=== PATIENT | female | born 1945 | race Caucasian/White ===

== ENCOUNTER 2018-11-25 18:19 | Emergency (ER) | payer BC ==
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
[2018-11-25 19:15] LABS: ABSOLUTE NEUTROPHIL COUNT 3.28; BASO % 0.7 % (0-6); EOS % 4.7 % (0-6); GRAN % 56.5 % (47-80); HEMATOCRIT 35.8 % (35.0-47.0); HEMOGLOBIN 11.8 gm/dl (11.6-16.0); LYMPH % 26.4 % (16-45); MEAN CELL VOLUME 85.9 fl (81-97); MEAN CORPUSCULAR HEMOGLOBIN 28.3 pg (27-33); MEAN PLATELET VOLUME 9.8 fl (7.4-10.4); MONO % 11.7 % (0-9); PLATELET COUNT 257 K/uL (130-400); RED BLOOD COUNT 4.17 M/uL (3.80-5.40); RED CELL DISTRIBUTION WIDTH 12.7 % (11.5-14.5); WHITE BLOOD COUNT W/O DIFF 5.8 K/uL (4.2-12.2)
[2018-11-25 19:24] LABS: BILIRUBIN,TOTAL < 0.20 mg/dL (0.2-1.0); BLOOD UREA NITROGEN 14 mg/dL (8-23); CREATININE 0.9 mg/dL (0.5-0.9); EST GLOMERULAR FILTRATION RATE > 60 mL/min
[2018-11-25 19:25] LABS: TOTAL PROTEIN 7.1 g/dL (6.6-8.7)
[2018-11-25 19:27] LABS: GLUCOSE,RANDOM 194 mg/dL (74-109)
[2018-11-25 19:29] LABS: ALT/SGPT 23 U/L (<33); AST/SGOT 32 U/L (10.0-35.0)
[2018-11-25 19:30] LABS: ALB/GLOB RATIO 1.5 (1.1-1.8); ALBUMIN 4.3 g/dL (4.0-5.0); ALKALINE PHOSPHATASE 54 U/L (35-104)
[2018-11-25] MEDS ORDERED: METFORMIN 500 MG TABLET PO ONE (21:56)
[2018-11-25] MEDS ORDERED: LORAZEPAM 0.5 MG TABLET PO ONE (21:56)
[2018-11-25] MEDS ORDERED: FENTANYL PF 100MCG/2ML VIAL IVP ONE (21:56)
[2018-11-25] MEDS ORDERED: 0.9 % SODIUM CHLORIDE 1000ML 500 ML IV SCH (22:00)
--- NOTE | 2018-11-27 15:55 | RADIOLOGY REPORT ---
EXAMINATION: Left ankle on 11/25/2018 at 7:59 p.m. CLINICAL HISTORY: The patient tripped over her dog with injury. TECHNIQUE: Three views of left ankle. COMPARISON: No prior left ankle series. ENCOUNTER: Initial. FINDINGS: Diffuse osteopenia is seen consistent with osteoporosis. There is fairly extensive vascular calcification present. No definite acute fracture or dislocation of the left ankle identified. There are prominent calcaneal spurs both posteriorly and along the plantar surface and also prominent calcification in the region of the distal aspect of the Achilles tendon. IMPRESSION: 1. Soft tissue swelling about the ankle, particularly laterally. 2. Numerous chronic-appearing findings about the ankle but no definite acute fracture of the left ankle identified. MTDD
--- NOTE | 2018-11-27 15:55 | RADIOLOGY REPORT ---
EXAMINATION: Right knee on 11/25/2018 at 8:02 p.m. CLINICAL HISTORY: The patient tripped over her dog with right knee injury. TECHNIQUE: Five views of right knee. COMPARISON: Right knee series 12/13/2011. ENCOUNTER: Initial. FINDINGS: The patient is again seen to be postop right TKA with a long-stem tibial component as before. The components appear in good position. However, on the oblique view in particular, there is an appearance very suspicious for a fracture of the distal metaphysis of the femur just above the femoral component of the TKA. This appearance was not seen on the oblique view from the prior right knee series of 12/13/2011. No obvious joint effusion seen today although the lateral view is somewhat rotated. Vascular calcification evident. IMPRESSION: 1. Postop right TKA. 2. Probably essentially undisplaced fracture of the distal femur just above the femoral component of the right TKA as noted above. MTDD
--- NOTE | 2018-11-27 21:46 | CT SCAN REPORT ---
EXAM: CT SCAN HEAD WO CONTRAST HISTORY: PATIENT FELL WITH INJURY. TECHNIQUE: Axial CT scan of the head performed without IV contrast. Preliminary report provided by [facility]. COMPARISON: None. ENCOUNTER: Initial. FINDINGS: No definite acute intracranial hemorrhage identified. No focal mass effect or midline shift evident. Mild generalized atrophy is present. No definite acute infarct or intracranial mass lesion seen. There is moderate opacification in the left maxillary sinus and complete opacification of the right sphenoid sinus. Some soft tissue air in the scalp of the left frontal region superiorly consistent with a scalp laceration in this region. There is a small nonspecific calcification along the right optic nerve just posterior to the globe within the right orbit. IMPRESSION: 1. NO DEFINITE ACUTE INTRACRANIAL HEMORRHAGE OR FOCAL MASS EFFECT EVIDENT. 2. PROMINENT MEMBRANE THICKENING IN THE LEFT MAXILLARY SINUS AND VIRTUAL COMPLETE OPACIFICATION OF THE RIGHT SPHENOID SINUS. 3. PROBABLE SCALP LACERATION HIGH IN THE LEFT FRONTAL REGION. 4. SINGLE SMALL NONSPECIFIC CALCIFICATION ALONG THE ANTERIOR ASPECT OF THE RIGHT OPTIC NERVE JUST POSTERIOR TO THE GLOBE WITHIN THE RIGHT ORBIT. JOB NUMBER: [id number] [facility]
--- NOTE | 2018-11-27 21:53 | CT SCAN REPORT ---
EXAM: CT SCAN CERVICAL SPINE WO CONTRAST HISTORY: PATIENT FELL, INJURY. TECHNIQUE: Axial CT scan of the entire cervical spine performed without IV contrast. Preliminary report provided by [facility]. COMPARISON: No prior cervical study with which to compare. ENCOUNTER: Initial. FINDINGS: There is complete opacification of the visualized right sphenoid sinus as noted on the head CT today as well, and moderate membrane thickening also again partially seen in the left maxillary sinus. No apical pneumothorax is evident. No definite fracture or prevertebral soft tissue swelling seen in the cervical spine. There is loss of the normal cervical lordosis, likely due to positioning or spasm. Prominent degenerative change at the odontoid-anterior arch of C1 articulation. Narrowing of the fourth through the seventh cervical interspaces with associated hypertrophic spurring. Multilevel facet joint arthropathy is evident. Very slight anterior subluxation of C3 on C4, which appears to be on a degenerative basis related to this facet joint arthropathy. There is prominent spurring, particularly at the C4-5 level posteriorly as well with resulting central stenosis, particularly at this level, which may be impinging on the anterior aspect of the cervical cord. This could be further assessed with an MRI of the cervical spine, if clinically desired. There is some mild ligamentous calcification posteriorly in the neck as well, particularly adjacent to the spinous processes of C6 and T1. IMPRESSION: 1. NO DEFINITE FRACTURE OR PREVERTEBRAL SOFT TISSUE SWELLING SEEN IN THE CERVICAL SPINE. 2. LOSS OF LORDOSIS IS LIKELY DUE TO POSITIONING OR SPASM. 3. MULTILEVEL DEGENERATIVE CHANGE IN THE CERVICAL SPINE, DETAILED ABOVE. THERE IS SOME ASSOCIATED CENTRAL STENOSIS AT THE C4-5 LEVEL IN PARTICULAR. JOB NUMBER: [id number] MTDD
== END 2018-11-25 23:12 | disposition short-term general hospital (02) ==
LOC: ER 18:19
DX: S72.434A Nondisplaced fracture of medial condyle of right femur, initial encounter for closed fracture (principal); S01.81XA Laceration without foreign body of other part of head, initial encounter; M54.2 Cervicalgia; M25.572 Pain in left ankle and joints of left foot; E11.9 Type 2 diabetes mellitus without complications; W01.10XA Fall on same level from slipping, tripping and stumbling with subsequent striking against unspecified object, initial encounter; Y92.009 Unspecified place in unspecified non-institutional (private) residence as the place of occurrence of the external cause; Z96.651 Presence of right artificial knee joint
CPT/HCPCS: 36416; 70450; 72125; 80053; 82948; 85025; 96374; 99285; J7030

== ENCOUNTER 2018-12-06 12:22 | Emergency (ER) | payer BC ==
--- NOTE | 2018-12-06 13:03 | Emergency Department Record ---
History of Present Illness - General Chief Complaint: Suture removal Stated Complaint: SUTURE REMOVAL Time Seen by Provider: 12/06/18 13:02 Source: Patient, Family Mode of arrival: Ambulatory Limitations: No limitations - History of Present Illness Initial Comments: 73 yo female presents for wound check and suture removal. No complaints since her last visit. No headaches. She has follow up for her other injuries scheduled. MD Complaint: Suture/staple removal, Wound re-check -: Week(s) Initial Visit For: Laceration Returns Today for: Staple/stitch removal, Wound recheck Symptoms Since Prior Visit: Improved Associated Symptoms: None - Related Data Allergies Allergy/AdvReac Type Severity Reaction Status Date / Time latex Allergy HIVES Verified 12/06/18 13:03 Sulfa (Sulfonamide Allergy HIVES Verified 12/06/18 13:03 Antibiotics) sulfamethoxazole Allergy HIVES Verified 12/06/18 13:03 [From Bactrim] trimethoprim [From Bactrim] Allergy HIVES Verified 12/06/18 13:03 Review of Systems Constitutional: Denies: Chills, Fever, Malaise, Weakness Eyes: Denies: Eye discharge, Eye pain, Photophobia, Vision change ENT: Denies: Congestion Respiratory: Denies: Cough Cardiovascular: Denies: Chest pain Endocrine: Denies: Fatigue Gastrointestinal: Denies: Diarrhea, Nausea, Vomiting Musculoskeletal: Reports: As per HPI, Arthralgia Skin: Reports: Bruising Neurological: Denies: Headache, Vertigo Hematological/Lymphatic: Denies: Easy bleeding, Easy bruising Past Medical History - SOCIAL HISTORY Smoking Status: Never smoker Alcohol Use: None Drug Use: None - RESPIRATORY Hx Respiratory Disorders: No - CARDIOVASCULAR Hx Cardio Disorders: No - NEURO Hx Neuro Disorders: No - GI Hx GI Disorders: No - Hx Genitourinary Disorders: No - ENDOCRINE Hx Endocrine Disorders: Yes Hx Diabetes: Yes (type) Hx Thyroid Disease: No - MUSCULOSKELETAL Hx Musculoskeletal Disorders: No - PSYCH Hx Psych Problems: No - HEMATOLOGY/ONCOLOGY Hx Hematology/Oncology Disorders: No Family Medical History Any Significant Family History?: No Physical Exam - General General Appearance: Alert, Oriented x3, Cooperative, No acute distress Limitations: No limitations - Head Head exam: Other (Healing eliptical scalp laceration, some scabs, no infection) - Eye Eye exam: Normal appearance, PERRL - ENT ENT exam: Normal exam Ear exam: Normal external inspection Nasal Exam: Normal inspection - Neck Neck exam: Normal inspection. negative: Tenderness - Neurological Neurological exam: Alert, Oriented X3. negative: Altered - Psychiatric Psychiatric exam: Normal affect, Normal mood. negative: Agitated, Anxious - Skin Skin exam: Intact Course - Reevaluation(s) Reevaluation #1: The wound is healing as expected No signs of infection Sutures removed without difficulty 12/06/18 18:56 Disposition Disposition: Discharge Clinical Impression: Visit for suture removal Disposition: Home, Self-Care Condition: (1) Good Instructions: Stitches Removal (ED) Additional Instructions: Return if you have any concerns with the healing of the laceration. Forms: Patient Portal Access Time of Disposition: 13:03 Quality - Quality Measures Quality Measures: N/A - Blood Pressure Screening Does Patient Have Any of the Following: No Blood Pressure Classification: Pre-Hypertensive BP Reading Systolic Measurement: 127 Diastolic Measurement: 79 Screening for High Blood Pressure: < Pre-Hypertensive BP, F/U Documented > [ G8950] Pre-Hypertensive Follow-up Interventions: Referral to alternative/primary care provider.
== END 2018-12-06 13:12 | disposition home or self-care (01) ==
LOC: ER 12:22
DX: Z48.02 Encounter for removal of sutures (principal)

== ENCOUNTER 2019-03-26 14:56 | Emergency (ER) | payer BC ==
--- NOTE | 2019-03-26 15:12 | Emergency Department Record ---
History of Present Illness - General Stated Complaint: FALL INJURY/HEAD Time Seen by Provider: 03/26/19 15:11 Source: Patient Mode of Arrival: Ambulatory Limitations: No limitations - History of Present Illness Initial Comments: 73 yo female presents after a slip and fall in the bathroom on a wet floor. She was giving her dog a bath. She thinks she hit her head on the toilet. She has posterior scalp tenderness and swelling. No neck pain. No other extremity pain, chest pain, syncope, chest or abdominal pain. No confusion. She is tender in the scalp but no significant headache. No blood thinners. MD Complaint: Fall -: Hour(s) (1) Fall From: Chair When Fall Occurred: 1 hour [employer] Fall Witnessed: Yes, by family Place Fall Occurred: Home Loss of Consciousness: None Prolonged Down Time?: No Symptoms Prior to Fall: None Location: Head Quality: Aching (mild) Associated Symptoms: Denies - [place] Coma Scale Eye Response: (4) Open spontaneously Motor Response: (6) Obeys commands Verbal Response: (5) Oriented [place] Total: 15 - Related Data Home Medications Medication Instructions Recorded Confirmed Last Taken Insulin Detemir [Levemir] 32 unit SQ QPM 03/26/19 03/26/19 03/25/19 Allergies Allergy/AdvReac Type Severity Reaction Status Date / Time latex Allergy HIVES Verified 03/26/19 15:07 Sulfa (Sulfonamide Allergy HIVES Verified 03/26/19 15:07 Antibiotics) sulfamethoxazole Allergy HIVES Verified 03/26/19 15:07 [From Bactrim] trimethoprim [From Bactrim] Allergy HIVES Verified 03/26/19 15:07 Review of Systems Constitutional: Denies: Chills, Fever, Malaise, Weakness Eyes: Denies: Eye discharge ENT: Denies: Congestion, Throat pain Respiratory: Denies: Cough, Dyspnea, Hemoptysis, Wheezes Cardiovascular: Denies: Chest pain, Palpitations, Syncope Endocrine: Denies: Fatigue, Polydipsia, Polyuria Gastrointestinal: Denies: Abdominal pain, Diarrhea, Nausea, Vomiting Genitourinary: Denies: Dysuria, Urgency Musculoskeletal: Denies: Arthralgia, Back pain, Myalgia Skin: Denies: Bruising, Change in color, Rash Neurological: Denies: Abnormal gait, Confusion, Headache, Numbness, Paresthesias, Seizure, Tingling, Tremors, Vertigo, Weakness Psychiatric: Denies: Anxiety Hematological/Lymphatic: Denies: Easy bleeding, Easy bruising Past Medical History - SOCIAL HISTORY Smoking Status: Never smoker Drug Use: None - RESPIRATORY Hx Respiratory Disorders: No - CARDIOVASCULAR Hx Cardio Disorders: No - NEURO Hx Neuro Disorders: No - GI Hx GI Disorders: No - Hx Genitourinary Disorders: No - ENDOCRINE Hx Endocrine Disorders: Yes Hx Diabetes: Yes (type) Hx Thyroid Disease: No - MUSCULOSKELETAL Hx Musculoskeletal Disorders: No - PSYCH Hx Psych Problems: No - HEMATOLOGY/ONCOLOGY Hx Hematology/Oncology Disorders: No Physical Exam - General General Appearance: Alert, Oriented x3, Cooperative, No acute distress Limitations: No limitations - Head Head exam: negative: Atraumatic, Normal inspection Head exam detail: Hematoma Image of Face/Head: 1 - swelling and tenderness, intact skin - Eye Eye exam: Normal appearance, PERRL. negative: Conjunctival injection, Scleral icterus - ENT ENT exam: Normal exam, Mucous membranes moist Ear exam: Normal external inspection Nasal Exam: Normal inspection Mouth exam: Normal external inspection - Neck Neck exam: Normal inspection - Respiratory Respiratory exam: Normal lung sounds bilaterally. negative: Chest wall tenderness, Decreased breath sounds, Prolonged expiratory, Respiratory distress, Rhonchi, Stridor, Wheezes - Cardiovascular Cardiovascular Exam: Regular rate, Normal rhythm, Normal heart sounds Peripheral Pulses: 2+: Radial (R), Radial (L) - GI/Abdominal GI/Abdominal exam: Soft. negative: Distended, Guarding, Rebound, Rigid, Tenderness - Rectal Rectal exam: Deferred - exam: Deferred - Extremities Extremities exam: Normal inspection. negative: Full ROM, Joint swelling, Normal capillary refill, Pedal edema, Tenderness - Back Back exam: Reports: Full ROM. Denies: CVA tenderness (R), CVA tenderness (L), Muscle spasm, Paraspinal tenderness, Rash noted, Tenderness, Vertebral tender ness - Neurological Neurological exam: Alert, Oriented X3 - Psychiatric Psychiatric exam: Normal affect, Normal mood. negative: Agitated, Anxious - Skin Skin exam: Dry, Intact, Normal color, Warm Course Vital Signs 03/26/19 15:05 Pulse Rate [ 79 Pulse Ox Probe] Respiratory 18 Rate Blood Pressure 169/73 [Left Arm] Pulse Ox 95 - Reevaluation(s) Reevaluation #1: 03/26/19 16:35 The HCT is negative for acute intra cranial injury. We discussed signs and symptoms of concussion and reasons for immediate return to the ED She is currently asymptomatic at DC Disposition Disposition: Discharge Clinical Impression: Contusion of head Qualifiers: Encounter type: initial encounter Contusion of head detail: scalp Qualified Code(s): S00.03XA - Contusion of scalp, initial encounter Disposition: Home, Self-Care Condition: (1) Good Instructions: Concussion (ED) Additional Instructions: Call your doctor for the next available follow up appointment if you have any concerns after this ER visit Review this ER visit and the tests performed with your family doctor Return to the ER for a recheck if worse,headache, nausea, vomiting, memory changes or any new concerns or questions Forms: Patient Portal Access Time of Disposition: 16:36 Quality - Quality Measures Quality Measures: N/A, Blunt Head Trauma (>2yr) - Silvina Coma Scale Silvina Coma Scale: [place] Coma Scale Eye Response: (4) Open spontaneously Motor Response: (6) Obeys commands Verbal Response: (5) Oriented [place] Total: 15 - Blunt Head Trauma - Adult Quality Measure: Measure #415: Utilization of CT for Minor Blunt Head Trauma ICD10 Codes Entered: Yes Was CT ordered: Yes Does Patient Have Any of the Following: No Exclusions Patient Presented Within 24 Hours of Injury: Yes [place] Score: [address] for Minor Blunt Head Trauma: < CT Done, Appropriate Indication > [G9529] Additional Inclusion Criteria: Within 24hrs (AND) GCS of 15 (AND) CT ordered. [G9530] Indications For CT: Age 65 Years and Older - Blood Pressure Screening Does Patient Have Any of the Following: Active Dx of HTN Blood Pressure Classification: Hypertensive Reading Systolic Measurement: 172 Diastolic Measurement: 62 Screening for High Blood Pressure: Patient Exclusion, Hx of HTN [G9744]
--- NOTE | 2019-03-28 21:38 | CT SCAN REPORT ---
EXAM: CT SCAN HEAD WO CONTRAST HISTORY: 73-YEAR-OLD FEMALE FELL HITTING BACK OF HEAD ON TOILET, BUMP. OCCURRED ONE HOUR AGO. DENIES LOSS OF CONSCIOUSNESS OR SYNCOPE. COMPARISON: Comparison to head CT 11/25/2018. TECHNIQUE: CT of the head was conducted without IV contrast with reconstruction in coronal and sagittal planes. FINDINGS: There is a moderate diffuse subgaleal hematoma involving the right parietal region. No acute intracranial hemorrhage, midline shift, or mass effect is identified. Preserved horowitz-white matter interface noted. No evidence of acute or chronic large ischemic events. No suspicious extraaxial fluid collections. Complete opacification of the right sphenoid sinus noted. Small amount of fluid present within the left mastoid air cells. Small amount of fluid present within the left maxillary sinus with chronic osseous thickening. Remainder of the paranasal sinuses and mastoid air cells are well aerated. Mild calcified plaque is present. No acute depressed or displaced calvarial fracture identified. IMPRESSION: 1. MODERATE DIFFUSE RIGHT PARIETAL SUBGALEAL HEMATOMA. NO ACUTE DISPLACED CALVARIAL FRACTURE OR INTRACRANIAL HEMORRHAGE. 2. OPACIFICATION OF THE RIGHT SPHENOID SINUS WITH SMALL AMOUNT OF FLUID PRESENT WITHIN THE LEFT MAXILLARY SINUS AND MASTOID AIR CELLS. JOB NUMBER: [id number] [facility]
== END 2019-03-26 16:53 | disposition home or self-care (01) ==
LOC: ER 14:56
DX: S00.03XA Contusion of scalp, initial encounter (principal); R51 Headache; W01.0XXA Fall on same level from slipping, tripping and stumbling without subsequent striking against object, initial encounter; Y93.K3 Activity, grooming and shearing an animal; Y92.002 Bathroom of unspecified non-institutional (private) residence as the place of occurrence of the external cause
CPT/HCPCS: 70450; 99284